=== PATIENT | female | born 1960 | race Caucasian/White ===

== ENCOUNTER 2024-11-10 02:57 | Observation (INO) | payer OTHER, SELFPAY ==
[2024-11-09 22:04] VITALS: BP 181/90
[2024-11-09 22:30] LABS: % Basophils 0.2 % (0-2); % Immature Granulocytes 0.2 % (0-0.5); % Lymphocytes 25.9 % (20.5-51.1); % Monocytes 7.6 % (1.7-9.3); % Neutrophils 65.1 % (42.2-75.2); Absolute Eosinophils 0.1 10^3/uL (0-0.7); Absolute Lymphocytes 1.5 10^3/uL (1.2-3.4); Absolute Monocytes 0.4 10^3/uL (0.1-0.6); Absolute Neutrophils 3.8 10^3/uL (1.4-6.5); Hematocrit 36.8 % (37.0-47.0); Hemoglobin 12.8 g/dL (12.0-16.0); Mean Corp Hgb Conc. 34.8 g/dL (33.0-37.0); Mean Corpuscular Hgb 31.9 pg (27.0-31.0); Mean Corpuscular Volume 91.8 fL (81.0-99.0); Mean Platelet Volume 9.3 fL (7.4-10.4); Nucleated Red Blood Cells % 0 %; Platelet Count 209 10^3/uL (130-400); Red Blood Cell Count 4.01 10^6/uL (4.20-5.40); Red Cell Dist. Width 13.3 % (11.5-14.5); White Blood Cell Count 5.8 10^3/uL (4.8-10.8)
[2024-11-09 22:37] LABS: COVID-19 Antigen Negative (Negative)
[2024-11-09 22:47] LABS: ALT (SGPT) 29 U/L (0-35); AST (SGOT) 26 U/L (14-36); Albumin 3.8 g/dl (3.5-5.0); Alkaline Phosphatase 108 U/L (38-126); Blood Urea Nitrogen 15 mg/dl (7-17); Calcium 9.3 mg/dl (8.4-10.2); Carbon Dioxide 27 mmol/L (22-30); Chloride 99 mmol/L (98-107); Glucose 160 mg/dl (70-99); Potassium 4.9 mmol/L (3.5-5.1); Sodium 134 mmol/L (135-145); Total Bilirubin 0.7 mg/dl (0.2-1.3); Total Protein 6.6 g/dl (6.3-8.2); eGFR > 60.00
[2024-11-09 23:00] VITALS: BP 159/81
--- NOTE | 2024-11-09 23:11 | ED.GENMED ---
History of Present Illness
<Court Spencer PA-C - Last Filed: 11/10/24 15:03>
General
Chief Complaint: Dizziness
Source: patient
Exam Limitations: none
Time Seen by Provider: 11/09/24 22:49
Nursing documentation reviewed up to this point in time: agreed with
History of Present Illness
History of Present Illness:
pt is a 63 y/o F
h/o htn, hld, niddm
here with severe dizziness, abrupt while watchin tv tonight
she has uri sxs x 5 days taht are actually much better today than they were; she believes she got the flu from her grandkids
had sore throat, fever, cough
symptoms are much better
zaria got severely dizzy and then vomited many times
she is very nauseated when she tries to move
she had a hard time walkin and needed assistance
had some diarrhea today too
no headache, neck pain, falls, other weakness/numbness.
Review of Systems
<Court Spencer PA-C - Last Filed: 11/10/24 15:03>
Review of Systems
Allergies reviewed?: Yes
All Other Systems: Not applicable
Phy Exam
<Court Spencer PA-C - Last Filed: 11/10/24 15:03>
Physical Exam
Physical Exam:
GENERAL: Alert , eyes closed, drowsy
HEAD: NCAT
EYE: pupils equal and reactive, significant horizontal resting nystamuc; no verticalc omponent noticed;
NECK: Supple,full rom, nontender
ENT: o/p clr, very dry mouth
CARDIAC: Regular rate and rhythm . no edema
LUNGS: no resp distres, no cough; + rhonchi
ABDOMEN: Soft, without focal tenderness, no r/g, no cvat
NEUROLOGICAL: Alert and orientedx 4, cn intact, no facial asymmetry, 5/5 strength in UE/LE, sensation intact, cannot ambulate, neg pronator drift
SKIN: Warm and dry, skin intact.
MUSCULOSKELETAL: No edema, well perfused.
PSYCH: Normal and appropriate interaction.
Course
<Court Spencer PA-C - Last Filed: 11/10/24 15:03>
Orders/Labs/Results
Orders:
Orders
11/09/24 22:07
Electrocardiogram (*1) Urgent
Reason for Study: Vertigo / Dizzy
EKG- Treatment ONCE
11/09/24 22:22
COVID-19 Antigen Urgent
Source: Nasal Swab
Complete Blood Count/With Diff Urgent
Comprehensive Metabolic Panel Urgent
Influenza A+B Rapid Molecular Urgent
BERT Source: Nasal Swab
Specimen Description:
11/09/24 23:09
CT Head & Neck Angio W/wo IV Urgent
Comment:
Reason For Exam: sudden nystagmus, vomiting, dizziness, flu pos
0.9% Sodium Chloride 1000 ml [Nss] 1,000 ml IV BOLUS
diazePAM [Valium Injection] 2 mg IV NOW STA
11/09/24 23:10
Ondansetron Injectable [Zofran] 4 mg IV NOW STA
11/09/24 23:11
CR Chest - 2 Views Urgent
Comment:
Reason For Exam: cough, fever, flu
11/10/24 00:22
diazePAM [Valium Injection] 2 mg IV NOW STA
11/10/24 02:00
Flush (0.9% Sodium Chloride) [Flush (Nss)] See Dose Instructions IV PER PROTOCOL
11/10/24 02:34
Admit/Transfer Patient As Directed
Co-Sign Provider:
Level of Care: Observation services
Assign to:: Telemetry
Physician / Group: Rigo
Diagnosis: Vertigo
Reason for Telemetry: CVA/TIA
Date to Stop Telemetry: 11/13/24
Time to Stop Telemetry: 11:00
PRN Pain Medication Management As Directed
May give lesser potent ordered pain med per pt: Yes
preference::
Protocol:: Medication orders for pain may be administered in a
manner that supports deferring to patient preference
when the pt is:
- Requesting an ordered lesser potent pain medication.
Least to most potent pain medications are defined
as: acetaminophen < NSAID < tramadol < opioids
(morphine, oxycodone, hydromorphone).
- Requesting a lesser dose of the same medication IF
ORDERED.
- Requesting a less intrusive route of administration
if both routes are prescribed by the provider (PO <
IV).
11/10/24 02:35
Code Status As Directed
Resuscitation Status: Full Code
11/10/24 03:25
0.9% Sodium Chloride 1000 ml [Nss] 1,000 ml IV 100 mls/hr
Acetaminophen [Tylenol] 650 mg PO Q4HPRN PRN
Meclizine [Antivert] 25 mg PO Q8HPRN PRN
Ondansetron Injectable [Zofran] 4 mg IV Q6HPRN PRN
11/10/24 03:25
Activity As Directed
Activity Level: Ambulate
With Assistance
EKG with chest pain [ECG as needed] As Directed
ECG as needed for:: Chest Pain
I/O [Intake/ Output] As Directed
Frequency: Per unit guidelines
Neurological Checks As Directed
Frequency: q4h
Orthostatic Vital Signs As Directed
Orthostatic VS Frequency: BID
Pneumatic Compression Sleeves As Directed
Type: Knee high
Precautions As Directed
Type of Precautions: Droplet
Vital Signs As Directed
Frequency: Per unit guidelines
Oxygen Therapy [O2 Therapy] [RESP] Routine
Titrate/Wean O2 to maintain O2 sat greater than (%): 94
Ot Eval And Treat Routine
PT Consult [Pt Eval And Treat] Routine
Activity Level: Ambulate
With Assistance
DX Deep Vein Thrombosis Video Routine
11/10/24 04:24
Basic Metabolic Panel IN AM
Complete Blood Count/No Diff IN AM
TSH Reflex To Free T4 Routine
11/10/24 Breakfast
Regular
At Your Request: Full Participation
Does patient need a safe tray?: No
11/10/24 08:00
Aspirin Chewable [Low Strength Aspirin] 81 mg PO DAILY
Candesartan Cilexetil [Atacand] 32 mg PO DAILY
Nebivolol HCl [Bystolic] 5 mg PO DAILY
Pantoprazole [Protonix] 40 mg PO DAILY
Sertraline HCl [Zoloft] 25 mg PO DAILY
11/10/24 22:00
Atorvastatin [Lipitor] 80 mg PO HS
11/13/24 11:00
DC Protocol for Telemetry ONCE
Abnormal Lab Results
11/09/24
22:22
RBC 4.01 L 10^6/uL
(4.20-5.40)
Hct 36.8 L %
(37.0-47.0)
MCH 31.9 H pg
(27.0-31.0)
Sodium 134 L mmol/L
(135-145)
Glucose 160 H mg/dl
(70-99)
11/09/24 22:22
11/09/24 22:22
Vital Signs
Initial and Last Documented VS:
Initial Vital Signs
Temp Pulse Resp BP Pulse Ox
36.9 C 64 18 181/90 98
11/09/24 22:04 11/09/24 22:04 11/09/24 22:04 11/09/24 22:04 11/09/24 22:04
Last Documented Vital Signs
Temp Pulse Resp BP Pulse Ox
37.2 C 75 16 178/88 94
11/10/24 13:07 11/10/24 13:07 11/10/24 13:07 11/10/24 13:07 11/10/24 13:07
<Derrick Chery, DO - Last Filed: 11/10/24 00:35>
Orders/Labs/Results
Orders:
Orders
11/09/24 22:07
Electrocardiogram (*1) Urgent
Reason for Study: Vertigo / Dizzy
EKG- Treatment ONCE
11/09/24 22:22
COVID-19 Antigen Urgent
Source: Nasal Swab
Complete Blood Count/With Diff Urgent
Comprehensive Metabolic Panel Urgent
Influenza A+B Rapid Molecular Urgent
BERT Source: Nasal Swab
Specimen Description:
11/09/24 23:09
CT Head & Neck Angio W/wo IV Urgent
Comment:
Reason For Exam: sudden nystagmus, vomiting, dizziness, flu pos
0.9% Sodium Chloride 1000 ml [Nss] 1,000 ml IV BOLUS
diazePAM [Valium Injection] 2 mg IV NOW STA
11/09/24 23:10
Ondansetron Injectable [Zofran] 4 mg IV NOW STA
11/09/24 23:11
CR Chest - 2 Views Urgent
Comment:
Reason For Exam: cough, fever, flu
11/10/24 00:22
diazePAM [Valium Injection] 2 mg IV NOW STA
11/10/24 02:00
Flush (0.9% Sodium Chloride) [Flush (Nss)] See Dose Instructions IV PER PROTOCOL
11/10/24 02:34
Admit/Transfer Patient As Directed
Co-Sign Provider:
Level of Care: Observation services
Assign to:: Telemetry
Physician / Group: Rigo
Diagnosis: Vertigo
Reason for Telemetry: CVA/TIA
Date to Stop Telemetry: 11/13/24
Time to Stop Telemetry: 11:00
PRN Pain Medication Management As Directed
May give lesser potent ordered pain med per pt: Yes
preference::
Protocol:: Medication orders for pain may be administered in a
manner that supports deferring to patient preference
when the pt is:
- Requesting an ordered lesser potent pain medication.
Least to most potent pain medications are defined
as: acetaminophen < NSAID < tramadol < opioids
(morphine, oxycodone, hydromorphone).
- Requesting a lesser dose of the same medication IF
ORDERED.
- Requesting a less intrusive route of administration
if both routes are prescribed by the provider (PO <
IV).
11/10/24 02:35
Code Status As Directed
Resuscitation Status: Full Code
11/10/24 03:25
0.9% Sodium Chloride 1000 ml [Nss] 1,000 ml IV 100 mls/hr
Acetaminophen [Tylenol] 650 mg PO Q4HPRN PRN
Meclizine [Antivert] 25 mg PO Q8HPRN PRN
Ondansetron Injectable [Zofran] 4 mg IV Q6HPRN PRN
11/10/24 03:25
Activity As Directed
Activity Level: Ambulate
With Assistance
EKG with chest pain [ECG as needed] As Directed
ECG as needed for:: Chest Pain
I/O [Intake/ Output] As Directed
Frequency: Per unit guidelines
Neurological Checks As Directed
Frequency: q4h
Orthostatic Vital Signs As Directed
Orthostatic VS Frequency: BID
Pneumatic Compression Sleeves As Directed
Type: Knee high
Precautions As Directed
Type of Precautions: Droplet
Vital Signs As Directed
Frequency: Per unit guidelines
Oxygen Therapy [O2 Therapy] [RESP] Routine
Titrate/Wean O2 to maintain O2 sat greater than (%): 94
Ot Eval And Treat Routine
PT Consult [Pt Eval And Treat] Routine
Activity Level: Ambulate
With Assistance
DX Deep Vein Thrombosis Video Routine
11/10/24 04:24
Basic Metabolic Panel IN AM
Complete Blood Count/No Diff IN AM
TSH Reflex To Free T4 Routine
11/10/24 Breakfast
Regular
At Your Request: Full Participation
Does patient need a safe tray?: No
11/10/24 08:00
Aspirin Chewable [Low Strength Aspirin] 81 mg PO DAILY
Candesartan Cilexetil [Atacand] 32 mg PO DAILY
Nebivolol HCl [Bystolic] 5 mg PO DAILY
Pantoprazole [Protonix] 40 mg PO DAILY
Sertraline HCl [Zoloft] 25 mg PO DAILY
11/10/24 22:00
Atorvastatin [Lipitor] 80 mg PO HS
11/13/24 11:00
DC Protocol for Telemetry ONCE
Abnormal Lab Results
11/09/24
22:22
RBC 4.01 L 10^6/uL
(4.20-5.40)
Hct 36.8 L %
(37.0-47.0)
MCH 31.9 H pg
(27.0-31.0)
Sodium 134 L mmol/L
(135-145)
Glucose 160 H mg/dl
(70-99)
11/09/24 22:22
11/09/24 22:22
Vital Signs
Initial and Last Documented VS:
Initial Vital Signs
Temp Pulse Resp BP Pulse Ox
36.9 C 64 18 181/90 98
11/09/24 22:04 11/09/24 22:04 11/09/24 22:04 11/09/24 22:04 11/09/24 22:04
Last Documented Vital Signs
Temp Pulse Resp BP Pulse Ox
37.2 C 75 16 178/88 94
11/10/24 13:07 11/10/24 13:07 11/10/24 13:07 11/10/24 13:07 11/10/24 13:07
<Court Spencer PA-C - Last Filed: 11/10/24 15:03>
MDM/Problems Addressed
Differential Diagnosis Includes:
vertigo, cerebellar stroke, dissection
MDM/Problems Addressed:
63 y/o F
flu like symptoms x 5 days
then sudden onset room spinning dizziness and vomiting and ataxia tonight
no neck trauma
no headache
very dehydrated appearing
drowsy
but answers all questions
very dry mouth
nystgmus at rest
d/w ed attending
labs reviewed, flu A +
otherwise labs ok
will give ivf, valium, zofran, ct a head/neck
dispo per results/improvement
<Court Spencer PA-C - Last Filed: 11/10/24 15:03>
*Critical Care Note
Total Time (30-74mins, 75-104mins- exclusive of procedures): Not Applicable
ED Attending Note
<Court Spencer PA-C - Last Filed: 11/10/24 15:03>
-
Portions of this chart may have been created with voice recognition software.� Occasional wrong word or��sound alike� substitutions may have occurred due to the inherent limitations of voice recognition software.
<Derrick Chery DO - Last Filed: 11/10/24 00:35>
ED Attending Note
Patient seen and examined by attending physician: Yes
ED Attending Note:
63-year-old female presents to the emergency department with flulike symptoms and vertigo. She had ataxia this evening so she came into the emergency department. Here she was diagnosed with flu. She had a CT angio of the head which is negative.
She is unable to walk due to this vertigo. She does have resting nystagmus. She did get some Valium with minimal relief. Patient to be brought into the hospital for continued hydration, observation and treatment. Patient was seen in conjunction
with the nurse practitioner reviewed and agree with her history and treatment plan. On my independent physical exam patient is awake and alert. Her eyes are closed stating that she cannot tolerate the vertigo with her eyes open. She is in no
respiratory distress. Speech is normal.
Discharge Plan
Departure
Patient Disposition: Admit
Date of Disposition: 11/10/24
Time of Disposition: 00:31
Presentation/result/management discussed w/ accepting MD/DO: Hospitalist
Condition: Fair
Discharge Problem:
Vertigo, Influenza A, Acute dehydration
Interventions
Interventions:
*Risk Screen - Suicide Last Done: 11/09/24 22:04
*General Assessment Last Done: 11/09/24 22:04
*Neglect/Abuse Screening Last Done: 11/09/24 22:04
ED- Fall Risk Assessment Last Done: 11/09/24 22:42
*ED COVID-19 Vaccine History Last Done: 11/09/24 22:04
*Nursing Disposition Last Done: 11/10/24 08:00
ED- Neurological Assessment Last Done: 11/10/24 07:09
ED- Cardiac Assessment Last Done: 11/10/24 07:09
ED Swallowing Screen Last Done: 11/09/24 22:43
[2024-11-09] MEDS: NSS 1000 IV (23:45)
[2024-11-09] MEDS: VALIUM INJECTION 2 MG IV (23:48)
[2024-11-09] MEDS: ZOFRAN 4 MG IV (23:48)
[2024-11-10] VITALS (7 sets, daily range): BP systolic 143–178; BP diastolic 75–88; PULSE 75–76
[2024-11-10] MEDS: VALIUM INJECTION 2 MG IV (01:03)
--- NOTE | 2024-11-10 02:36 | HPS.HSE ---
Family Physician
-
Family Physician: Reginald Wallis MD
Chief Complaint
-
Dizziness, N/V
History of Present Illness
Patient is a 63y F with PMH significant for hypertension and DM-II who presents to ED complaining of dizziness and N/V. Patient states that she developed 'flu symptoms' about 5 days ago. She notes that these symptoms have been steadily
improving and she actually felt quite well earlier today. This evening after dinner, she developed sudden onset of dizziness with room spinning sensation. She had multiple episodes of N/V over a period of about 2 hours. With ongoing symptoms and
persistent dizziness, 911 was called and patient presented to the ED for further evaluation.
Patient denies any prior h/o similar symptoms.
She denies any recent medication changes, trauma / head injury, etc.
In the ED, patient is lying still with eyes closed and reports recurrent dizziness, nausea any time she moves or opens her eyes.
Medical History
Past Medical History
Past Medical History: Reports Other
Additional Past Medical History:
Hypertension
DM-II
Dyslipidemia
GERD
Depression
Past Surgical History: Reports Other
Additional Past Surgical History:
Breast Reduction
Carpal Tunnel
Social History
Tobacco: Former Smoker (Quit smoking 20 years ago. Approx 15 pack years total use.)
Alcohol: None
Drug: None
Family History
Family History: Not pertinent
Allergies / Home Medications
Allergies reflects when Allergies were last updated in [email or web address].
Home Medications with original date entered in [email or web address]
Allergy/Medication List:
Allergies
Allergy/AdvReac Type Severity Reaction Status Date / Time
No Known Allergies Allergy Unverified 11/09/24 22:03
Home Medications
atorvastatin 80 mg tablet 80 mg PO HS 11/10/24
candesartan 32 mg tablet 32 mg PO DAILY 11/10/24
cholecalciferol (vitamin D3) 25 mcg (1,000 unit) tablet 25 mcg PO DAILY 11/10/24
cyanocobalamin (vitamin B-12) 1,000 mcg tablet 1,000 mcg PO DAILY 11/10/24
dulaglutide 3 mg/0.5 mL subcutaneous pen injector (Trulicity) 3 mg SC QWEEK 11/10/24
melatonin 3 mg tablet 3 mg PO HS PRN insomnia 11/10/24
metformin 500 mg tablet 500 mg PO BID 11/10/24
nebivolol 5 mg tablet 5 mg PO DAILY 11/10/24
omeprazole magnesium 20 mg tablet,delayed release (Prilosec OTC) 20 mg PO DAILY 11/10/24
sertraline 25 mg tablet 25 mg PO DAILY 11/10/24
Review of Systems
-
History Source: Patient
A 12 point ROS was completed and negative except as noted: Yes
Constitutional: Reports Fatigue; Denies Chills
EENT: Denies Sore Throat
Respiratory: Denies Cough or Trouble Breathing
Cardiac: Denies Chest Pain or Palpitations
Abdomen/GI: Reports Nausea and Vomiting; Denies Abdominal Pain or Diarrhea
: Denies Dysuria or Frequency
Musculoskeletal: Denies Joint Pain or Edema
Neurological: Reports Dizzy; Denies Headache
Psych: Denies Depression or Anxiety
Physical Exam
Vital Signs
Vital Signs
Temp Pulse Resp BP Pulse Ox
98.5 F 67 12 159/81 99
11/09/24 22:04 11/09/24 23:00 11/09/24 23:00 11/09/24 23:00 11/09/24 23:00
Physical Exam
General: Other (63y F resting with eyes closed.)
HEENT: Moist mucous membranes and Other (Pos nystagmus mostly of the L eye.)
Respiratory: Clear; No Wheezes, Rales or Rhonchi
Cardiac: S1/S2 and Regular Rhythm; No Murmur
GI: Soft, Non Tender, Non Distended and Normal Bowel Sounds
Musculoskeletal: No Clubbing, No Cyanosis and No Edema
Neuro: AO x 3
Laboratory Results
-
11/09/24 22:22
11/09/24:
Laboratory Results
Total Bilirubin 0.7 mg/dl (0.2-1.3) 11/09/24:
AST 26 U/L (14-36) 11/09/24:
ALT 29 U/L (0-35) 11/09/24:
Alkaline Phosphatase 108 U/L (38-126) 11/09/24:
Impression/Plan
-
A/P: Patient is a 63y F with PMH significant for HTN and DM-II who presents to ED complaining of dizziness and N/V this evening.
Vertigo
- Observe overnight for further evaluation and treatment.
- Continue supportive care including meclizine, antiemetics, IVFs, etc.
- CTA in the ED was unremarkable.
- Check MRI in the AM.
- PT / OT evaluations.
- Follow for any new / worsening symptoms.
Influenza A
- Symptoms improving. Not febrile, hypoxemic, etc.
- No role for Tamiflu, etc at present.
- Follow proper precautions.
Benign Hypertension
- Stable. Continue usual med regimen with holding parameters.
DM-II
- Stable. Hold PO metformin acutely.
- Follow glucose and cover with SSI as needed.
- Update A1C.
DVT Prophylaxis: SCDs
Code Status: Full
[2024-11-10] MEDS: NSS 1000 IV ×2 (04:33→13:35)
[2024-11-10] MEDS: ZOFRAN 4 MG IV ×2 (04:38→10:26)
[2024-11-10] MEDS: ANTIVERT 25 MG PO ×2 (04:39→12:13)
[2024-11-10 04:40] LABS: Hematocrit 34.8 % (37.0-47.0); Hemoglobin 12.4 g/dL (12.0-16.0); Mean Corp Hgb Conc. 35.6 g/dL (33.0-37.0); Mean Corpuscular Hgb 32.2 pg (27.0-31.0); Mean Corpuscular Volume 90.4 fL (81.0-99.0); Mean Platelet Volume 9.2 fL (7.4-10.4); Platelet Count 201 10^3/uL (130-400); Red Blood Cell Count 3.85 10^6/uL (4.20-5.40); Red Cell Dist. Width 13.2 % (11.5-14.5); White Blood Cell Count 6.2 10^3/uL (4.8-10.8)
[2024-11-10 04:52] LABS: Blood Urea Nitrogen 10 mg/dl (7-17); Calcium 8.9 mg/dl (8.4-10.2); Carbon Dioxide 25 mmol/L (22-30); Chloride 101 mmol/L (98-107); Glucose 136 mg/dl (70-99); Potassium 3.9 mmol/L (3.5-5.1); Sodium 135 mmol/L (135-145); eGFR > 60.00
[2024-11-10 05:35] LABS: TSH Reflex To Free T4 0.59 uIU/ml (0.47-4.68)
[2024-11-10] MEDS: LOW STRENGTH ASPIRIN 81 MG PO (08:22)
[2024-11-10] MEDS: ZOLOFT 25 MG PO (08:22)
[2024-11-10] MEDS: ATACAND 32 MG PO (08:23)
[2024-11-10] MEDS: BYSTOLIC 5 MG PO (08:24)
[2024-11-10] MEDS: PROTONIX 40 MG PO (08:27)
[2024-11-10] MEDS: SOLU-MEDROL PF 125 MG IV (10:33)
--- NOTE | 2024-11-10 14:12 | W.PN.HOSP.TC ---
Addendum entered and electronically signed by Nilo Mercer MD 11/10/24 17:26:
125mg solumedrol given inpatient;
[id number]
Original Note:
Today's Communication/Plan
-
� Received Solu-Medrol 1.5 mg IV inpatient
-Continue 5 days of prednisone 50 mg daily
� Symptomatic control with antiemetics
�Can prescribe meclizine, short course
-Oupt PT if needed
-f/u pcp within 1 week; neurology if neededd
Assessment / Plan
Assessment / Plan
Physical Exam
General: Other (63y F resting with eyes closed.)
HEENT: Moist mucous membranes and Other (Pos nystagmus mostly of the L eye.)
Respiratory: Clear; No Wheezes, Rales or Rhonchi
Cardiac: S1/S2 and Regular Rhythm; No Murmur
GI: Soft, Non Tender, Non Distended and Normal Bowel Sounds
Musculoskeletal: No Clubbing, No Cyanosis and No Edema
Neuro: AO x 3
A/P: Patient is a 63y F with PMH significant for HTN and DM-II who presents to ED complaining of dizziness and N/V this evening.
Vestibular Neuritis
-Appreciate physical therapy/vestibular therapy and neurology recommendations
� Obvious signs of super neuritis, most likely precipitated by influenza A
� Received Solu-Medrol 1.5 mg IV inpatient
Continue 5 days of prednisone 50 mg daily
� Symptomatic control with antiemetics
�Can prescribe meclizine, short course
� Outpatient PT if symptoms do not resolve
� Follow-up PCP outpatient, neurology if needed outpatient
� CT with no evidence of remarkable findings, no need for MRI at this time
Influenza A
- Symptoms improving. Not febrile, hypoxemic, etc.
- No role for Tamiflu, etc at present.
- Follow proper precautions.
Benign Hypertension
- Stable. Continue usual med regimen with holding parameters.
DM-II
- Stable
-resume home meds
- Follow glucose and cover with SSI as needed.
DVT Prophylaxis: SCDs
Code Status: Full
More than 30 minutes spent in discharge including
Final examination of the patient
Summarizing hospital stay
Instructions for continuing care to all relevant caregivers
Preparation of discharge records, prescriptions, and referral forms
Total time spent (37 in minutes):
Anticipated Discharge: Today
Subjective/Interval History
-
Date of Service: November 10, 2024
feeling better post iv steroids
Objective Data
-
Labs:
Laboratory Results
11/10/24
04:24
WBC 6.2
Hgb 12.4
Hct 34.8 L
Plt Count 201
Sodium 135
Potassium 3.9
Chloride 101
Carbon Dioxide 25
BUN 10
Creatinine 0.5 L
Glucose 136 H
Calcium 8.9
Vital Signs:
Vital Signs
Temp Pulse Resp BP Pulse Ox
98.9 F 75 16 178/88 94
11/10/24 13:07 11/10/24 13:07 11/10/24 13:07 11/10/24 13:07 11/10/24 13:07
Review of Systems
-
History Source: Patient
All other systems: Not reviewed unless documented
Data Reviewed
-
Diagnostic Radiology: Report Reviewed by me
CT Scan: Report Reviewed by me
Labs: Labs Reviewed by me
--- NOTE | 2024-11-10 14:18 | W.DS.TRANS ---
DC Summary - [employer]
-
Discharge Instructions:
Discharge Diagnosis/Procedures Vestibular neuritis
Diet Diabetic, Carb Controlled,Low Cholesterol,Low
Fat
Activity As tolerated
Blood Work cbc and cmp outpatient with pcp within 1 week
Instructions:
Stand-Alone Forms:
Changes to Home Medications: Yes
Discharge Medications:
DC Medications w/original date entered in [employer]
acetaminophen 325 mg tablet (Tylenol) 650 mg PO Q6HPRN PRN mild pain 11/10/24
atorvastatin 80 mg tablet 80 mg PO HS 11/10/24
benzonatate 200 mg capsule 200 mg PO BIDPRN PRN cough 11/10/24
candesartan 32 mg tablet 32 mg PO DAILY 11/10/24
cholecalciferol (vitamin D3) 25 mcg (1,000 unit) tablet 25 mcg PO NOON 11/10/24
cyanocobalamin (vitamin B-12) 1,000 mcg tablet 1,000 mcg PO NOON 11/10/24
dulaglutide 3 mg/0.5 mL subcutaneous pen injector (Trulicity) 3 mg SC FERNANDES 11/10/24
guaifenesin 600 mg tablet, extended release 12 hr (Mucinex) 600 mg PO BIDPRN PRN cough 11/10/24
meclizine 25 mg tablet 25 mg PO Q8HPRN PRN Dizziness 20 days #20 tabs 11/10/24
melatonin 3 mg tablet 3 mg PO HS insomnia 11/10/24
metformin 500 mg tablet 500 mg PO BID 11/10/24
nebivolol 5 mg tablet 5 mg PO QPM 11/10/24
omeprazole magnesium 20 mg tablet,delayed release (Prilosec OTC) 20 mg PO DAILY 11/10/24
ondansetron HCl 4 mg tablet 4 mg PO Q8H PRN nausea and vomiting 3 days #10 tabs 11/10/24
prednisone 50 mg tablet 50 mg PO DAILY 5 days #5 tabs 11/10/24
sertraline 25 mg tablet 25 mg PO DAILY 11/10/24
Home Medication Changes
ondansetron HCl 4 mg tablet 4 mg PO Q8H PRN nausea and vomiting 3 days #10 tabs 11/10/24
prednisone 50 mg tablet 50 mg PO DAILY 5 days #5 tabs 11/10/24
Pending Results: No
--- NOTE | 2024-11-10 15:51 | CON.NEURO ---
Neuro Assessment/Plan
Assessment
Head CT imgs rev'd, normal
CTA head/neck no stenosis, occlusion, or aneurysms
Plan
agree with diagnosis of vesibular neuritis. left ear.
given <24 hrs onset of symptoms, agree treat with steroids
can give first dose IV solumedrol 125, then prednisone 50 mg daily to complete 5 days
Consultation
Order
Date of Consultation: 11/10/24
Requesting Provider: Nilo Mercer
Reason for Consult: vestibular neuritis
Subjective/Objective
Subjective Data
Date of Service: November 10, 2024
Patient is a 63y F with PMH significant for hypertension and DM-II who presents to ED complaining of dizziness and N/V. Patient states that she developed 'flu symptoms' about 5 days ago. She notes that these symptoms have been steadily
improving and she actually felt quite well earlier today. This evening after dinner, she developed sudden onset of dizziness with room spinning sensation. She had multiple episodes of N/V over a period of about 2 hours. With ongoing symptoms and
persistent dizziness, 911 was called and patient presented to the ED for further evaluation.
In the ED, patient seen by physical therapy, concern for vestibular neuritis
Objective Data
Vital Signs
Temp Pulse Resp BP Pulse Ox
37.2 C 85 16 178/88 94
11/10/24 13:07 11/10/24 15:15 11/10/24 13:07 11/10/24 13:07 11/10/24 13:07
Lab Results
11/10/24 04:24
11/10/24 04:24
Sodium 135 mmol/L (135-145) 11/10/24 04:24
Potassium 3.9 mmol/L (3.5-5.1) 11/10/24 04:24
BUN 10 mg/dl (7-17) 11/10/24 04:24
Glucose 136 mg/dl (70-99) H 11/10/24 04:24
Calcium 8.9 mg/dl (8.4-10.2) 11/10/24 04:24
Patient Allergies
No Known Allergies Allergy (Unverified 11/09/24 22:03)
Physical Exam
-
AAOx3, speech clear, language intact
VFF, EOMI, constant right beating nystagmus independent of gaze direction
face symmetric
full strength b/l UE/LE
sensation intact touch/pin
no neglect
Medications
-
Home Medications
�Medication �Instructions �Recorded
acetaminophen 325 mg tablet 650 mg PO Q6HPRN PRN mild pain 11/10/24
(Tylenol)
atorvastatin 80 mg tablet 80 mg PO HS High Cholesterol 11/10/24
benzonatate 200 mg capsule 200 mg PO BIDPRN PRN cough 11/10/24
candesartan 32 mg tablet 32 mg PO DAILY Blood Pressure 11/10/24
cholecalciferol (vitamin D3) 25 25 mcg PO NOON Supplement 11/10/24
mcg (1,000 unit) tablet
cyanocobalamin (vitamin B-12) 1,000 mcg PO NOON Supplement 11/10/24
1,000 mcg tablet
dulaglutide 3 mg/0.5 mL 3 mg SC FERNANDES Diabetes 11/10/24
subcutaneous pen injector
(Trulicity)
guaifenesin 600 mg tablet, 600 mg PO BIDPRN PRN cough 11/10/24
extended release 12 hr (Mucinex)
meclizine 25 mg tablet 25 mg PO Q8HPRN PRN Dizziness 20 11/10/24
days #20 tabs
melatonin 3 mg tablet 3 mg PO HS insomnia 11/10/24
metformin 500 mg tablet 500 mg PO BID Diabetes 11/10/24
nebivolol 5 mg tablet 5 mg PO QPM Blood Pressure 11/10/24
omeprazole magnesium 20 mg 20 mg PO DAILY Gastrointestinal 11/10/24
tablet,delayed release (Prilosec Issue
OTC)
ondansetron HCl 4 mg tablet 4 mg PO Q8H PRN nausea and 11/10/24
vomiting 3 days #10 tabs
prednisone 50 mg tablet 50 mg PO DAILY 5 days #5 tabs 11/10/24
sertraline 25 mg tablet 25 mg PO DAILY Blood Pressure 11/10/24
== END 2024-11-10 15:48 | disposition home or self-care (01) ==
LOC: ED 02:57
PROVIDERS: Emergency Medicine; ADMITTING PHYSICIAN Hospitalist; ATTENDING PHYSICIAN Internal Medicine; CONSULT PHYSICIAN Psychiatry & Neurology Clinical Neurophysiology; EMERGENCY PHYSICIAN Student in an Organized Health Care Education/Training Program; FAMILY PHYSICIAN Internal Medicine
DX: J10.1 Influenza due to other identified influenza virus with other respiratory manifestations (principal); H81.22 Vestibular neuronitis, left ear; E86.0 Dehydration; R05.9 Cough, unspecified; R11.2 Nausea with vomiting, unspecified; R19.7 Diarrhea, unspecified; R50.9 Fever, unspecified; R26.2 Difficulty in walking, not elsewhere classified; E78.5 Hyperlipidemia, unspecified; M47.812 Spondylosis without myelopathy or radiculopathy, cervical region; H55.00 Unspecified nystagmus; I10 Essential (primary) hypertension; E11.9 Type 2 diabetes mellitus without complications; K21.9 Gastro-esophageal reflux disease without esophagitis; F32.A Depression, unspecified; Z87.891 Personal history of nicotine dependence; Z79.85 Long-term (current) use of injectable non-insulin antidiabetic drugs; Z79.899 Other long term (current) drug therapy; Z79.84 Long term (current) use of oral hypoglycemic drugs; Z79.52 Long term (current) use of systemic steroids; Z11.52 Encounter for screening for COVID-19
CPT/HCPCS: 70496; 70498; 71046; 80048; 80053; 84443; 85025; 85027; 87502; 87811; 93005; 96361; 96374; 96375; 96376; 99285; G0378; Q9967

== ENCOUNTER → 2025-03-28 12:50 | Outpatient (REF) | payer OTHER, SELFPAY | LOC: HWRCS 12:50 | PROVIDERS: ATTENDING PHYSICIAN Internal Medicine Cardiovascular Disease; FAMILY PHYSICIAN Internal Medicine | DX: R06.09 Other forms of dyspnea (principal) | CPT/HCPCS: 93306 ==